=== PATIENT | female | born 1980 | race Hispanic/Latino ===

== ENCOUNTER 2016-05-14 11:36 | Emergency (ER) | payer OTHER ==
[~2016-05-14] VITALS: Ht 157.5 cm; Wt 89.8 kg
--- NOTE | 2016-05-14 13:32 | RADIOLOGY REPORT ---
EXAMINATION: XR SHOULDER, RIGHT CLINICAL INFORMATION: Severe shoulder pain with loss of range of motion. COMPARISON: None. TECHNIQUE: Right shoulder, 4 views FINDINGS: Bones have normal alignment. The acromioclavicular and glenohumeral joints are normal. There is no arthritic deformity, fracture, subluxation or focal soft tissue swelling. The acromion process has slightly curved, type 2 morphology. There is no calcium deposition within the rotator cuff. The visualized right lung is normal. IMPRESSION: The right shoulder is radiographically normal.
--- NOTE | 2016-05-14 13:37 | ED UPPER/LOWER EXTREMITY COMPL ---
History of Present Illness General Chief Complaint: Shoulder Injury Stated Complaint: RIGHT SHOULDER PAIN Source: patient Exam Limitations: no limitations Vital Signs & Intake/Output Vital Signs & Intake/Output Vital Signs Date Time Temp Pulse Resp B/P Pulse O2 O2 Flow FiO2 Ox Delivery Rate 05/14 1205 98.6 87 16 112/73 97 Room Air Allergies Coded Allergies: No Known Allergies (05/14/16) Reconcile Medications Diclofenac Sodium (Voltaren) 1 % GEL..GRAM. 1 GM TOP 4 TIMES/DAY PRN PAIN AND INFLAMMATION apply to affected area(s) Triage Note: RECEIVED 36 YO FEMALE C/O SEVERE RIGHT SHOULDER PAIN SINCE GETTING OOB YESTERDAY AM. PAIN SEVERE, LIMITED ROM. Triage Nurses Notes Reviewed? yes : No Patient currently breastfeeds: Yes HPI: This patient is a 36-year-old female who presented to the emergency department today for evaluation of right shoulder pain. The patient reported that she was leaning on her right arm trying to get out of bed yesterday morning when the pain began. She reported that it has been constant since onset. She reported the pain is up to a 10 out of 10 with movement. She reported that she is unable to lift her arm at the shoulder. She denied any radiation of the pain. She reported that she is sharp and throbbing. No neck pain or head pain. The patient denied any chest pain or shortness of breath. The patient denied any trauma or falls. Past History Travel History Traveled to [place] past 21 day No Medical History Any Pertinent Medical History? see below for history Neurological: NONE EENT: NONE Cardiovascular: NONE Respiratory: NONE Gastrointestinal: NONE Hepatic: NONE Renal: NONE Musculoskeletal: NONE Psychiatric: NONE Endocrine: NONE Surgical History Surgical History: non-contributory Psychosocial History What is your primary language Romansh Tobacco Use: Never used Family History Hx Contributory? No Review of Systems Review of Systems Constitutional: Reports: no symptoms. EENTM: Reports: no symptoms. Respiratory: Reports: no symptoms. Cardiovascular: Reports: no symptoms. Gastrointestinal/Abdominal: Reports: no symptoms. Musculoskeletal: Reports: see HPI. Skin: Reports: no symptoms. Neurological/Psychological: Reports: no symptoms. All Other Systems: Reviewed and Negative Physical Exam Physical Exam General Appearance: well developed/nourished, no apparent distress, alert, awake Comments: Well-developed well-nourished person in no acute distress HEENT: Head normocephalic, moist mucous membranes Neck: Supple, no midline tenderness Back: Normal gait Respiratory: No respiratory distress. Speaking in full sentences Right upper extremity: No effusions or overlying erythema or ecchymosis the joint spaces. No bony or muscular deformities noted. Full active and passive range of motion at the elbow and wrist. Decreased range of motion of the shoulder with abduction. Tenderness to palpation over the lateral aspect of the shoulder. Radial brachial pulses 2+ and strong. Manager Secondary strength 5 out of 5. Capillary refill less than 2 seconds Neuro: Alert and oriented x3 Psych: Mood affect normal, normal memory normal judgment. Skin: Warm and dry, no rash on exposed skin Progress Differential Diagnosis: arterial insufficiency, cellulitis, compartment syndrome , contusion, dislocation, DVT, fracture, gout, septic arthritis, sprain, tendon injury Plan of Care: Orders Procedure Date/time Status Durable Medical Equipment 05/14 1344 Active Diagnostic Imaging: Viewed by Me: Radiology Read. Discussed w/RAD: Radiology Read. Radiology Impression: PATIENT: RYLEE CASTRO PRESENT AGE: 36 PATIENT ACCOUNT NO: [id number] : 81 LOCATION: [facility] ORDERING PHYSICIAN: ROSMERY GASPAR DO (TBS) SERVICE DATE: 05/14/16 EXAM TYPE: RAD - XRY-SHOULDER COMPLETE-RIGHT EXAMINATION: XR SHOULDER, RIGHT CLINICAL INFORMATION: Severe shoulder pain with loss of range of motion. COMPARISON: None. TECHNIQUE: Right shoulder, 4 views FINDINGS: Bones have normal alignment. The acromioclavicular and glenohumeral joints are normal. There is no arthritic deformity, fracture, subluxation or focal soft tissue swelling. The acromion process has slightly curved, type 2 morphology. There is no calcium deposition within the rotator cuff. The visualized right lung is normal. IMPRESSION: The right shoulder is radiographically normal. DICTATED BY: WASHINGTON ESTRELLA MD DATE/ TIME DICTATED:05/14/161325 SEAT INSTALLER:ADRIANNA DATE/TIME TRANSCRIBED: 05/14/161325 CONFIDENTIAL, DO NOT COPY WITHOUT APPROPRIATE AUTHORIZATION. < Electronically signed in Other Vendor System> SIGNED BY: WASHINGTON ESTRELLA MD 05/14/16 1332 Departure Departure Disposition: HOME OR SELF CARE Condition: Stable Clinical Impression Primary Impression: Shoulder sprain Qualifiers: Encounter type: initial encounter Shoulder sprain type: unspecified sprain Laterality: unspecified laterality Qualified Code: S43.409A - Unspecified sprain of unspecified shoulder joint, initial encounter Referrals: [facility] BANSAL,[place] PATIENT HAS NO PRIMARY CARE DR (PCP/Family) Additional Instructions: Please use the sling provided to here in the emergency Department for extra support of your shoulder. You may apply ice or heat to the affected areas as needed. Use the medication for pain as prescribed. Please call the orthopedic physicians information has been provided to you in this packet for further evaluation. Return for any worsening symptoms or concerns. Departure Forms: Customer Survey General Discharge Information Prescriptions: Current Visit Scripts Diclofenac Sodium (Voltaren) 1 GM TOP 4 TIMES/DAY PRN PAIN AND INFLAMMATION #1 TUBE apply to affected area(s)
[2016-05-14] MEDS ORDERED: VOLTAREN100 GM TOP (13:48)
[2016-05-14 13:57] VITALS: BP 110/70
== END 2016-05-14 13:56 ==
LOC: ERH 11:36
DX: S43.401A Unspecified sprain of right shoulder joint, initial encounter (principal); X58.XXXA Exposure to other specified factors, initial encounter
CPT/HCPCS: 73030-RT